=== PATIENT | male | born 1950 | race Caucasian/White ===

== ENCOUNTER 2018-09-28 10:21 | Day surgery (SDC) | payer MEDICARE, OTHER ==
[~2018-09-28] VITALS: Ht 182.9 cm; Wt 72.5 kg
[~2018-09-28 10:21] MED LIST: HYDROmorphone 2 MG/ML VIAL IV PRN; IV RINGERS,LACTATED 1000ML 1,000 ML IV SCH; LIDOCAINE 1% PF 2 ML VIAL. ID PRN; MORPHINE SULFATE 2 MG/ML VIAL. IV PRN; ONDANSETRON PF 4 MG/2 ML VIAL. IV PRN; PROCHLORPERAZINE 10 MG/2 ML VIAL. IV PRN; fentaNYL PF VIAL 100 MCG/2 ML VIAL IV PRN
[2018-09-28] MEDS ORDERED: ACETAMINOPHEN 500 MG TABLET PO ONE (10:29)
[2018-09-28] MEDS ORDERED: PROPOFOL 20 ML IV ONE (10:33)
[2018-09-28] MEDS ORDERED: ONDANSETRON PF 4 MG/2 ML VIAL. ONE (10:33)
[2018-09-28] MEDS ORDERED: LIDOCAINE 2% PF 5 ML VIAL. ONE (10:33)
[2018-09-28] MEDS ORDERED: DEXAMETHASONE SOD PHOS 4 MG/ML VIAL ONE (10:33)
[2018-09-28] MEDS ORDERED: fentaNYL PF VIAL 100 MCG/2 ML VIAL ONE ×2 (10:34→13:09)
[2018-09-28] MEDS ORDERED: ROCURONIUM 50 MG/5 ML VIAL. ONE (10:34)
[2018-09-28] MEDS ORDERED: SEVOFLURANE 61 TO 120 MINUTES. IH ONE (11:45)
[2018-09-28] MEDS ORDERED: ePHEDrine PF IN SALINE 50 MG/10 ML SYRINGE. IV ONE (11:47)
[2018-09-28] MEDS ORDERED: [UNRECOGNIZED DRUG - OTHER] INJ ONE (11:50)
[2018-09-28] MEDS ORDERED: BUPIVACAINE-EPI 0.25%-1:200000 MPF 30 ML VIAL. INJ ONE (11:50)
[2018-09-28] MEDS ORDERED: ceFAZolin SODIUM 1 GM VIAL ONE (11:51)
[2018-09-28] MEDS ORDERED: KETOROLAC 30 MG/ML INJ FOR OR. INJ ONE (12:05)
[2018-09-28] MEDS ORDERED: NEOSTIGMINE METHYLSULFATE 5 MG/5 ML SYRINGE. ONE (12:21)
[2018-09-28] MEDS ORDERED: GLYCOPYRROLATE 1 MG/5 ML VIAL. ONE (12:22)
--- NOTE | 2018-09-28 12:53 | PDOC4 ---
Operative Note Operative Note Date: 09/28/2018 Preoperative diagnosis: Left inguinal hernia Postoperative diagnosis: Same Procedure: Robotic-assisted laparoscopic left inguinal hernia repair with mesh Surgeon: Matt Specimen: None Dictation: Patient is a 67-year-old male with complaints of left groin pain with a bulge consistent with a left inguinal hernia. Procedure robotic-assisted laparoscopic left inguinal hernia repair with mesh was explained to the patient detail all risks benefits were also discussed including bleeding infection injury to intra-abdominal contents possibly necessitating further or open operations alternatives to this procedure also discussed with patient who seemed to understand and gave both verbal and written consent to have the procedure performed. Patient was taken to the operative [place] supine position general anesthesia was initiated once patient was sleep and intubated is placed in low lithotomy positioning and his abdomen was prepped and draped usual sterile fashion using ChloraPrep. An area just above the umbilicus was injected with quarter percent Marcaine with epinephrine incision was made [place] blade scalpel and a Veress needle was placed within the abdomen creating pneumoperitoneum once this was complete 8mm da Poly port was placed and a da Poly camera was placed within the abdomen which was inspected this showed a fairly large left inguinal hernia the right inguinal area appeared to be normal with no evidence of hernia. 8mm da Poly port was placed in the right mid abdomen and one in the left mid abdomen the robot was brought in and docked all port sites surgeon went to the robotic console using grasper and Endo Adebayo scissors the peritoneum over the left side was incised a flap was propagated inferiorly reducing the hernia sac and contents. A large Bard 3-D max mesh for the left side was placed over the hernia defect and the peritoneum was closed with a running 20V lock suture. The ports were then removed the pneumoperitoneum reduced all port sites were closed for septic tumor Monocryl Mastisol Steri-Strips and island dressings were applied. Patient was awakened and x-ray to the operating room taken to recovery in stable condition all sponge instrument needle counts listed as correct estimate blood loss 5 mL. RADHA BARRETO MD Sep 28, 2018 12:53
--- NOTE | 2018-09-28 12:57 | DISCH ---
DISCHARGE INSTRUCTIONS Condition on Discharge Condition on Discharge: Stable Activity After Discharge Activity Instructions for Disc: Avoid exertion Other activity instructions: no lifting more than 20 pounds for 2 weeks Diet after Discharge Diet after Discharge: Regular Wound Incision Care Other wound/incision instructi: a shower 24 hours Contacting the DRDanae after DC Call your doctor for: If your condition worsens Follow-Up Follow up with: Dr. Barreto in 2 weeks RADHA BARRETO MD Sep 28, 2018 12:57
[2018-09-28] MEDS ORDERED: HYDR-3164 PO (13:17)
[2018-09-28] MEDS ORDERED: HYDROcodone/APAP 5/325MG 1 TAB TABLET PO ONE ×2 (13:30)
[2018-09-28 13:42] VITALS: BP 152/70
== END 2018-09-28 14:15 | disposition home or self-care (01) ==
LOC: SURG 10:21
PROVIDERS: ATTEND Surgery
DX: K40.90 Unilateral inguinal hernia, without obstruction or gangrene, not specified as recurrent (principal); E78.5 Hyperlipidemia, unspecified; Z86.010 Personal history of colon polyps; Z85.828 Personal history of other malignant neoplasm of skin
CPT/HCPCS: 49650; A7015; C1781; J0171; J0690; J1100; J1885; J2001; J2405; J2704; J2710; J3010; J3490